=== PATIENT | female | born 2000 | race Caucasian/White ===

== ENCOUNTER 2018-10-30 13:58 | Emergency (ER) | payer MEDICAID ==
--- NOTE | 2018-10-30 15:12 | ER Document Report ---
ED Medical Screen (RME) - General Chief Complaint: Abdominal Cramping Stated Complaint: ABDOMINAL PAIN/ TEST Time Seen by Provider: 10/30/18 14:45 Mode of Arrival: Ambulatory Information source: Patient Notes: Patient is an otherwise healthy 18-year-old female presented to the emergency department with chief complaint of concern for . Patient reports she has taken 3 home tests which are all positive. Patient's concern is that she has a Nexplanon implanted into her arm. She states this is been there for approximately 2 years. She states that she called her CONFIGURATION SPECIALIST who directed her to come to the emergency department. Exam: Abdomen soft, nontender, no guarding no rebound. I have greeted and performed a rapid initial assessment of this patient. A comprehensive ED assessment and evaluation of the patient, analysis of test results and completion of the medical decision making process will be conducted by additional ED providers. I have specifically instructed the patient or family members with the patient to immediately return to any nursing staff should anything change in the patient's condition or with their chief complaint. This medical record was dictated with voice recognizing software. There may be grammatical, syntax errors that are unintended. TRAVEL OUTSIDE OF THE [place] IN LAST 30 DAYS: No - Related Data Allergies/Adverse Reactions: No Known Allergies Allergy (Verified 10/29/18 12:03) Physical Exam - Vital signs Vitals: Temp Pulse Resp BP Pulse Ox 98.6 F 98 16 124/74 97 10/30/18 14:05 10/30/18 14:05 10/30/18 14:05 10/30/18 14:05 10/30/18 14:05 Course - Vital Signs Vital signs: Temp Pulse Resp BP Pulse Ox 98.6 F 98 16 124/74 97 10/30/18 14:05 10/30/18 14:05 10/30/18 14:05 10/30/18 14:05 10/30/18 14:05
[2018-10-30 15:15] LABS: APPEARANCE,URINE CLEAR; BILIRUBIN,URINE NEGATIVE (NEGATIVE); COLOR,URINE STRAW; GLUCOSE, URINE NEGATIVE (NEGATIVE); KETONES,URINE NEGATIVE (NEGATIVE); LEUKOCYTE ESTERASE,URINE NEGATIVE (NEGATIVE); NITRITE,URINE NEGATIVE (NEGATIVE); PROTEIN,URINE NEGATIVE (NEGATIVE); URINE SPECIFIC GRAVITY 1.005; UROBILINOGEN,URINE NEGATIVE mg/dL (<2.0)
--- NOTE | 2018-10-30 17:23 | ER Document Report ---
ED General - General Chief Complaint: Abdominal Cramping Stated Complaint: ABDOMINAL PAIN/ TEST Time Seen by Provider: 10/30/18 14:45 Mode of Arrival: Ambulatory TRAVEL OUTSIDE OF THE [place] IN LAST 30 DAYS: No - HPI Notes: 18-year-old female to the emergency department with complaints of pelvic cramping for the past 2 weeks. She states that she took several tests at home and they were positive. She states that she has an Implanon in her arm and so she called her COMMUNICATIONS DEPARTMENT CHAIR in [place] to ask what to do. She was advised to come to the emergency department for further evaluation. She denies any vaginal bleeding. She does admit that she got a heavy period last month which is atypical since she has been on Implanon. She denies any fevers, chills, chest pain, shortness of breath, nausea, vomiting, diarrhea, lightheadedness, passing out. She denies vaginal discharge, urinary complaints, flank pain. - Related Data Allergies/Adverse Reactions: No Known Allergies Allergy (Verified 10/29/18 12:03) Past Medical History - General Information source: Patient - Social History Smoking Status: Current Every Day Smoker Frequency of alcohol use: None Drug Abuse: None Family History: Reviewed & Not Pertinent Patient has suicidal ideation: No Patient has homicidal ideation: No Renal/ Medical History: Denies: Hx Peritoneal Dialysis Past Surgical History: Reports: Hx Tonsillectomy - and adenoids Review of Systems - Review of Systems Constitutional: denies: Chills, Fever EENT: No symptoms reported Cardiovascular: denies: Chest pain, Palpitations, Orthopnea, Dyspnea, Syncope, Dizziness, Lightheaded Respiratory: denies: Cough, Short of breath Gastrointestinal: Abdominal pain. denies: Diarrhea, Nausea, Vomiting Genitourinary: denies: Frequency, Flank pain, Hematuria Female Genitourinary: See HPI, Irregular period. denies: Vaginal discharge, Vaginal bleeding Musculoskeletal: No symptoms reported Skin: No symptoms reported Hematologic/Lymphatic: No symptoms reported Neurological/Psychological: No symptoms reported -: Yes All other systems reviewed and negative Physical Exam - Vital signs Vitals: Temp Pulse Resp BP Pulse Ox 98.6 F 98 16 124/74 97 10/30/18 14:05 10/30/18 14:05 10/30/18 14:05 10/30/18 14:05 10/30/18 14:05 Interpretation: Normal - General General appearance: Appears well, Alert Notes: Patient is eating chips upon my arrival to the room. She is laying in the bed with a male punchboard assembler. - HEENT Head: Normocephalic, Atraumatic Eyes: Normal Pupils: PERRL - Respiratory Respiratory status: No respiratory distress Chest status: Nontender Breath sounds: Normal Chest palpation: Normal - Cardiovascular Rhythm: Regular Heart sounds: Normal auscultation Murmur: No - Abdominal Inspection: Normal Distension: No distension Bowel sounds: Normal Tenderness: Nontender. No: Tender, McBurney's point, Hernandez's sign, Guarding, Rebound Organomegaly: No organomegaly - Back Back: Normal. No: CVA tenderness - Neurological Neuro grossly intact: Yes Cognition: Normal Orientation: AAOx4 [place] Coma Scale Eye Opening: Spontaneous [place] Coma Scale Verbal: Oriented Zackary Coma Scale Motor: Obeys Commands [place] Coma Scale Total: 15 Speech: Normal Motor strength normal: LUE, RUE, LLE, RLE Sensory: Normal - Psychological Associated symptoms: Normal affect, Normal mood - Skin Skin Temperature: Warm Skin Moisture: Dry Skin Color: Normal Course - Re-evaluation Re-evalutation: 10/30/18 18:19 She with pelvic pain for the past 2 weeks. Sonja offered lab work and ultrasound which the patient did want but shortly after leaving room patient states she wanted to be discharged. She is not particularly tender on palpation of the abdomen and she has reassuring vital signs. She declines all pain medicine that I offer her. I believe it is reasonable for her to follow-up outpatient. We will give FARM CREW LEADER follow-up. I offered pain control for home and she declined. Will discharge home. Impression: Pelvic pain, negative testing. Will follow the treatment plan as outlined above. Patient agrees with the plan. - Vital Signs Vital signs: Temp Pulse Resp BP Pulse Ox 98.6 F 98 16 124/74 97 10/30/18 14:05 10/30/18 14:05 10/30/18 14:05 10/30/18 14:05 10/30/18 14:05 Discharge - Discharge Clinical Impression: Pelvic cramping, Negative test Condition: Stable Disposition: HOME, SELF-CARE Instructions: Pelvic Pain ([facility]) Additional Instructions: FOLLOW UP WITH FARM CREW LEADER LISTED BELOW. RETURN IF ANY WORSENING SYMPTOMS SUCH WORSENING PAIN, FEVERS, HEAVY VAGINAL BLEEDING OR ANY OTHER CONCERNS. Referrals: RAFFY NAGEL MD [ACTIVE STAFF] - Follow up in 1 week
[2018-10-30 18:21] VITALS: BP 112/67
== END 2018-10-30 18:21 | disposition home or self-care (01) ==
LOC: ER 13:58
DX: Z32.02 Encounter for pregnancy test, result negative (principal); R10.2 Pelvic and perineal pain; N92.6 Irregular menstruation, unspecified; Z97.5 Presence of (intrauterine) contraceptive device; F17.200 Nicotine dependence, unspecified, uncomplicated
CPT/HCPCS: 36415; 81001; 84702; 99284